=== PATIENT | female | born 1990 | race Two or more races ===

== ENCOUNTER 2019-03-05 16:51 | Emergency (ER) | payer SELFPAY ==
[~2019-03-05] VITALS: Ht 162.6 cm; Wt 77.0 kg
[2019-03-05 17:08] VITALS: BP 135/86
== END 2019-03-05 20:30 | disposition left against medical advice (07) ==
LOC: ER 16:51
DX: Z53.21 Procedure and treatment not carried out due to patient leaving prior to being seen by health care provider (principal)

== ENCOUNTER 2019-03-08 16:44 | Emergency (ER) | payer SELFPAY ==
[~2019-03-08] VITALS: Ht 162.6 cm; Wt 73.0 kg
[2019-03-08] MEDS ORDERED: MECLIZINE 25MG TABLET PO ONE (19:15)
[2019-03-08 20:26] VITALS: BP 132/79
== END 2019-03-08 20:28 | disposition home or self-care (01) ==
LOC: ER 16:44
DX: H66.91 Otitis media, unspecified, right ear (principal); H61.21 Impacted cerumen, right ear; Z88.2 Allergy status to sulfonamides
CPT/HCPCS: 69209; 99284; J8597